=== PATIENT | male | born 1965 | race Caucasian/White ===

== ENCOUNTER 2020-06-07 11:55 | Emergency (ER) | payer BC ==
[2020-06-07] MEDS ORDERED: Ondansetron 4 MG/2 ML SDV IVPUSH ONE (12:14)
[2020-06-07] MEDS ORDERED: Morphine 2 MG/ML SYRINGE IVPUSH ONE ×2 (12:14→12:44)
[2020-06-07] MEDS ORDERED: Sodium Chloride 0.9% 1,000 ML IV SCH (12:15)
[2020-06-07] MEDS ORDERED: Sodium Chloride 0.9% 50 ML SDV FLUSH ONE (13:25)
--- NOTE | 2020-06-07 13:26 | EDM.PDOC ---
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 states he has these 3-4 times a week and is out of several minutes, with confusion following with consciousness for several more minutes. He complains of sudden onset mid-abd pain that is sharp, constant, and radiates to his left chest and back. Normal bowel movement this morning and he denies any bloody or dark stools. Associated nausea and states he became diaphoretic prior to his syncopal episode. [facility] - Related Data Allergies Allergy/AdvReac Type Severity Reaction Status Date / Time No Known Allergies Allergy Verified 06/07/20 12:45 Home Meds: Home Meds ClonazePAM [KlonoPIN] 0.5 mg PO BEDTIME PRN 06/07/20 [History] Dicyclomine HCl [Bentyl] 10 mg PO QID 06/07/20 [History] FLUoxetine [PROzac] 10 mg PO DAILY 06/07/20 [History] Pantoprazole Sodium [Protonix] 40 mg PO DAILY 06/07/20 [History] Psyllium Husk [Metamucil] 425 gm PO DAILY 06/07/20 [History] Simvastatin 20 mg PO BEDTIME 06/07/20 [History] Sucralfate [Carafate] 1 gm PO QID 06/07/20 [History] ED ROS GENERAL - Review of Systems Review Of Systems: See Below Constitutional: Reports: Malaise, Diaphoresis HEENT: Reports: No Symptoms Respiratory: Reports: No Symptoms Cardiovascular: Reports: Chest Pain, Syncope GI/Abdominal: Reports: Abdominal Pain, Nausea : Reports: No Symptoms Musculoskeletal: Reports: No Symptoms Skin: Reports: No Symptoms Neurological: Reports: Syncope Psychiatric: Reports: No Symptoms ED EXAM, GI/ABD - Physical Exam Exam: See Below Exam Limited By: No Limitations General Appearance: Alert, No Apparent Distress Head: Atraumatic, Normocephalic Neck: Normal Inspection, Supple Respiratory/Chest: No Respiratory Distress, Lungs Clear, Normal Breath Sounds, No Accessory Muscle Use, Chest Non-Tender Cardiovascular: Normal Peripheral Pulses, Regular Rate, Rhythm, No Edema, No Murmur GI/Abdominal Exam: Normal Bowel Sounds, Soft, No Distention, No Abnormal Bruit, Other (tenderness to mid abd with deep palpation) Extremities: Normal Inspection, Normal Range of Motion Neurological: Alert, Oriented, CN II-XII Intact, Normal Cognition, No Motor/Sensory Deficits Skin Exam: Warm, Dry, Intact, Normal Color, No Rash #1 Interpretation EKG Date: 06/07/20 Time: 12:21 Rhythm: NSR Rate (Beats/Min): 77 [place]: LAD-Left [place] Deviation P-Wave: Present QRS: Normal ST-T: Normal QT: Normal Comparison: NA - No Prior EKG Course - Vital Signs Text/Narrative:: Labs, EKG, CXR, and CT Head unremarkable. Patient given Morphine 2 mg IV x 2, zofran, and dilaudid 0.5 mg IV for pain and nausea. CT CHEST/ABD/PEL with moderately distended stomach. No obstruction. Patient already taking protonix and Gas-X at home. Will start reglan 10 mg PO q8 hours and Keppra 500 mg PO BID. Unsure if patient is having seizures, more likely it is vaso-vagal, but will try Keppra and see if it helps with syncopal episodes. Take for 2 weeks and follow up with Dr. Garcia. Discussed with nurse of Dr. Posada (surgery) and will fax note and results. GI referral requested at [facility] and images of CT given to . Last Recorded V/S: Last Vital Signs Temp 36.7 C 06/07/20 13:01 Pulse 69 06/07/20 13:01 Resp 20 06/07/20 13:01 BP 144/91 H 06/07/20 13:01 Pulse Ox 96 06/07/20 13:01 - Orders/Labs/Meds Orders: Active Orders 24 hr Category Date Time Status EKG Documentation Completion [RC] ASDIRECTED Care 06/07/20 12:13 Active PROLACTIN Stat Lab 06/07/20 12:20 Received UA RFX PHILLIP AND CULT IF INDIC [URIN] Stat Lab 06/07/20 12:13 Ordered Iopamidol [Isovue-300 (61%)] Med 06/07/20 13:30 Active 100 ml IV ASDIRECTED Sodium Chloride 0.9% [Normal Saline] 1,000 ml Med 06/07/20 12:15 Active IV ASDIRECTED EKG 12 Lead [EK] Stat Ther 06/07/20 12:13 Ordered Medication Orders Sodium Chloride (Normal Saline) 1,000 mls @ 1,000 mls/hr IV ASDIRECTED DEXTER Last Admin: 06/07/20 12:30 Dose: 1,000 mls/hr Documented by: WALKREN Iopamidol (Isovue-300 (61%)) 100 ml IV ASDIRECTED DEXTER Labs: Laboratory Tests 06/07/20 06/07/20 06/07/20 Range/Units 12:20 12:20 12:20 WBC 5.8 (4.0-11.0) K/uL RBC 5.48 (4.50-6.50) M/uL Hgb 16.9 (13.0-18.0) g/dL Hct 47.8 (40.0-54.0) % MCV 87 (76-96) fL MCH 30.8 (27.0-32.0) pg MCHC 35.4 H (31.0-35.0) g/dL RDW 14.0 (11.0-16.0) % Plt Count 182 (150-400) K/uL MPV 9.5 (6.0-10.0) fL Neut % (Auto) 58.6 (45.0-70.0) % Lymph % (Auto) 27.9 (20.0-40.0) % [place] % (Auto) 10.2 H (3.0-10.0) % Eos % (Auto) 2.8 (1.0-5.0) % Baso % (Auto) 0.5 (0.0-0.5) % Neut # (Auto) 3.40 (2.00-7.50) K/uL Lymph # (Auto) 1.62 (1.50-4.00) K/uL [place] # (Auto) 0.59 (0.20-0.80) K/uL Eos # (Auto) 0.16 (0.04-0.40) K/uL Baso # (Auto) 0.03 (0.02-0.10) K/uL Sodium 143 (136-145) mmol/L Potassium 3.5 (3.5-5.1) mmol/L Chloride 106 (98-107) mmol/L Carbon Dioxide 25.5 (21.0-32.0) mmol/L Anion Gap 15.0 (5.0-15.0) mmol/L BUN 10 (8-26) mg/dL Creatinine 1.08 (0.70-1.30) mg/dL Est Cr Clr Drug Dosing TNP Estimated GFR (MDRD) > 60 (>60) MLS/MIN BUN/Creatinine Ratio 9.3 (6-25) Glucose 147 H (74-100) mg/dL Lactic Acid 2.5 H (0.4-2.0) mmol/L Calcium 8.7 (8.5-10.1) mg/dL Total Bilirubin 0.5 (0.0-1.0) mg/dL AST 23 (15-37) U/L ALT 64 (12-78) U/L Alkaline Phosphatase 74 (46-116) U/L Troponin I < 0.017 (0.000-0.060) ng/mL Total Protein 7.3 (6.4-8.2) g/dL Albumin 3.9 (3.4-5.0) g/dL Globulin 3.4 (2.2-4.2) g/dL Albumin/Globulin Ratio 1.1 (0.8-2.0) SARS CoV-2 RNA Rapid BECK 06/07/20 Range/Units 13:49 WBC (4.0-11.0) K/uL RBC (4.50-6.50) M/uL Hgb (13.0-18.0) g/dL Hct (40.0-54.0) % MCV (76-96) fL MCH (27.0-32.0) pg MCHC (31.0-35.0) g/dL RDW (11.0-16.0) % Plt Count (150-400) K/uL MPV (6.0-10.0) fL Neut % (Auto) (45.0-70.0) % Lymph % (Auto) (20.0-40.0) % [place] % (Auto) (3.0-10.0) % Eos % (Auto) (1.0-5.0) % Baso % (Auto) (0.0-0.5) % Neut # (Auto) (2.00-7.50) K/uL Lymph # (Auto) (1.50-4.00) K/uL [place] # (Auto) (0.20-0.80) K/uL Eos # (Auto) (0.04-0.40) K/uL Baso # (Auto) (0.02-0.10) K/uL Sodium (136-145) mmol/L Potassium (3.5-5.1) mmol/L Chloride (98-107) mmol/L Carbon Dioxide (21.0-32.0) mmol/L Anion Gap (5.0-15.0) mmol/L BUN (8-26) mg/dL Creatinine (0.70-1.30) mg/dL Est Cr Clr Drug Dosing Estimated GFR (MDRD) (>60) MLS/MIN BUN/Creatinine Ratio (6-25) Glucose (74-100) mg/dL Lactic Acid (0.4-2.0) mmol/L Calcium (8.5-10.1) mg/dL Total Bilirubin (0.0-1.0) mg/dL AST (15-37) U/L ALT (12-78) U/L Alkaline Phosphatase (46-116) U/L Troponin I (0.000-0.060) ng/mL Total Protein (6.4-8.2) g/dL Albumin (3.4-5.0) g/dL Globulin (2.2-4.2) g/dL Albumin/Globulin Ratio (0.8-2.0) SARS CoV-2 RNA Rapid BECK Negative Meds: Medications Generic Name Dose Route Start Last Admin Trade Name Freq PRN Reason Stop Dose Admin Sodium Chloride 1,000 mls @ 1,000 mls/hr 06/07/20 12:15 06/07/20 12:30 Normal Saline IV 1,000 mls/hr ASDIRECTED DEXTER Administration Iopamidol 100 ml 06/07/20 13:30 Isovue-300 (61%) IV ASDIRECTED DEXTER Discontinued Medications Generic Name Dose Route Start Last Admin Trade Name Oneilq PRN Reason Stop Dose Admin Hydromorphone HCl 0.5 mg 06/07/20 14:20 06/07/20 14:00 Dilaudid IVPUSH 06/07/20 14:21 0.5 mg ONETIME ONE Administration Hydromorphone HCl Confirm 06/07/20 14:20 Dilaudid Administered 06/07/20 14:21 Dose 2 mg .ROUTE .STK-MED ONE Levetiracetam 1,000 mg/ Sodium 110 mls @ 400 mls/hr 06/07/20 15:02 Chloride IV 06/07/20 15:16 ONETIME ONE Morphine Sulfate 2 mg 06/07/20 12:14 06/07/20 12:15 Morphine IVPUSH 06/07/20 12:15 2 mg ONETIME ONE Administration Morphine Sulfate 2 mg 06/07/20 12:44 06/07/20 13:00 Morphine IVPUSH 06/07/20 12:45 2 mg ONETIME ONE Administration Ondansetron HCl 4 mg 06/07/20 12:14 Zofran IVPUSH 06/07/20 12:15 ONETIME ONE Pantoprazole Sodium 40 mg 06/07/20 15:04 Protonix Granules PO 06/07/20 15:05 BEDTIME ONE Simethicone 80 mg 06/07/20 15:02 Simethicone PO 06/07/20 15:03 ONETIME ONE Sodium Chloride 50 ml 06/07/20 13:25 Normal Saline FLUSH 06/07/20 13:26 ONETIME ONE Departure - Departure Time of Disposition: 16:00 Disposition: Home, Self-Care 01 Condition: Good Clinical Impression: Gastroenteritis - Discharge Information *PRESCRIPTION DRUG MONITORING PROGRAM REVIEWED*: Not Applicable *COPY OF PRESCRIPTION DRUG MONITORING REPORT IN PATIENT ANTWON: Not Applicable Referrals: PCP,None [Primary Care Provider] - 1 Week (Please refer patient to GI at [facility]. ) Forms: ED Department Discharge Additional Instructions: Take KEPPRA 500 mg PO BID. Take reglan 10 mg PO q8h as needed for abdominal pain/nausea/vomiting. Eat smaller meals every 3 hours. Sips of fluid. Avoid heavy meals and dairy. GI referral placed for [facility]. Sepsis Event Note (ED) - Evaluation Sepsis Screening Result: No Definite Risk - Focused Exam Vital Signs: Vital Signs Temp Pulse Resp BP Pulse Ox 06/07/20 13:01 36.7 C 69 20 144/91 H 96 06/07/20 12:50 76 20 140/96 H 06/07/20 12:30 82 20 144/96 H 98 06/07/20 12:15 80 20 143/109 H 96 06/07/20 12:00 36.5 C 78 20 158/102 H 97 - My Orders Last 24 Hours: My Active Orders 06/07/20 12:13 EKG Documentation Completion [RC] ASDIRECTED UA RFX PHILLIP AND CULT IF INDIC [URIN] Stat EKG 12 Lead [EK] Stat 06/07/20 12:15 Sodium Chloride 0.9% [Normal Saline] 1,000 ml IV ASDIRECTED 06/07/20 12:20 PROLACTIN Stat 06/07/20 13:30 Iopamidol [Isovue-300 (61%)] 100 ml IV ASDIRECTED - Assessment/Plan Last 24 Hours: My Active Orders 06/07/20 12:13 EKG Documentation Completion [RC] ASDIRECTED UA RFX PHILLIP AND CULT IF INDIC [URIN] Stat EKG 12 Lead [EK] Stat 06/07/20 12:15 Sodium Chloride 0.9% [Normal Saline] 1,000 ml IV ASDIRECTED 06/07/20 12:20 PROLACTIN Stat 06/07/20 13:30 Iopamidol [Isovue-300 (61%)] 100 ml IV ASDIRECTED
[2020-06-07] MEDS ORDERED: Iopamidol 612 MG/ML 100 ML Bottle IV SCH (13:30)
--- NOTE | 2020-06-07 13:30 | CR ---
DATE OF SERVICE: 06/07/20 CLINICAL DATA: chest pain AP CHEST: The patient has taken a very poor inspiration and is in an apical lordotic position. No priors. The heart size is normal. The lungs appear clear. No pneumothorax. No pleural effusions. No evidence of acute intrathoracic disease. [id number] [facility]
--- NOTE | 2020-06-07 14:08 | CT ---
DATE OF SERVICE: 06/07/2020 CLINICAL DATA: Syncope Unenhanced brain CT: Multi slice acquisition through the brain without IV contrast was performed. No priors. No masses or mass effect. No intracranial hemorrhage. No evidence of acute or subacute infarct. No osseous abnormalities. Impression: No acute intracranial abnormalities. MTDD
[2020-06-07] MEDS ORDERED: HYDROmorphone 2 MG/ML SDV ONE (14:20)
[2020-06-07] MEDS ORDERED: HYDROmorphone 2 MG/ML SDV IVPUSH ONE (14:20)
[2020-06-07] MEDS ORDERED: Simethicone 80 MG Tab.Chew PO ONE (15:02)
[2020-06-07] MEDS ORDERED: levETIRAcetam 1,000 MG in Sodium Chloride 0.9% 100 ML IV ONE (15:02)
[2020-06-07] MEDS ORDERED: Pantoprazole 40 MG Delayed-Release Granules 1 Packet PO ONE (15:04)
--- NOTE | 2020-06-07 15:20 | CT ---
DATE OF SERVICE: 06/07/2020 CLINICAL DATA: Chest and abdominal pain Enhanced chest CT: Multi slice acquisition through the chest with IV contrast was performed. No priors. There is suboptimal contrast opacifications of the pulmonary arteries to exclude small PE. No pneumothorax. No pleural effusions. No aortic aneurysm or dissection. There are minimal atelectatic changes in the dependent portion of both lungs. The lungs are otherwise clear. No areas of consolidation. The heart size is normal. No significant pericardial effusion. There is a moderate sized hiatal hernia. There is mild degenerative disc disease at multiple levels in the thoracic spine. The enhanced abdomen and pelvic CT: Multi slice axial acquisition with IV, but without oral contrast was performed. No priors. There is a moderate sized hiatal hernia. The stomach is fluid and gas filled and moderately distended. There are small radiodensities in the dependent stomach which are most likely ingested pill fragments. The liver is normal size with homogeneous attenuation. No focal hepatic lesions. The gallbladder appears normal. No calcified gallstones. No pericholecystic fluid. No biliary duct dilatation. The spleen appears normal. There is an 18 mm nodule medial to the spleen that is isodense to the spleen consistent with mariano accessory spleen. The right and left kidneys appear normal and enhanced symmetrically. No hydronephrosis or hydroureter. Bladder is partially fluid filled. It appears normal. Prostate is mildly enlarged. There is a calcification within the prostate consistent with chronic prostatitis. The appendix is not dilated. No evidence of appendicitis. There is a moderate amount of gas and stool present throughout the colon. There is mild mural thickening within the distal sigmoid colon at the rectosigmoid junction. This is probably related to nondistention. Direct visualization is recommended to exclude an infiltrating process. No free air. No free fluid. No dilated loops of bowel. No adenopathy. No aortic aneurysm or dissection. There is a small fat containing umbilical hernia. There is a fat containing left inguinal hernia. There is degenerative disc disease at multiple levels in the lower thoracic and lumbar spine. MTDD
== END 2020-06-07 16:15 | disposition home or self-care (01) ==
LOC: LB.ED 11:55
DX: K52.9 Noninfective gastroenteritis and colitis, unspecified (principal); E78.5 Hyperlipidemia, unspecified; K21.9 Gastro-esophageal reflux disease without esophagitis; Z20.828 Contact with and (suspected) exposure to other viral communicable diseases; Z79.899 Other long term (current) drug therapy
CPT/HCPCS: 36415; 70450; 71045; 71260; 74177; 80053; 83605; 84146; 84484; 85025; 93005; 96374; 96375; 99284; 99284-25; J1170; J1953; J2270; J7030; U0002

== ENCOUNTER 2021-05-09 15:24 | Emergency (ER) | payer BC ==
[2021-05-09] MEDS ORDERED: cloNIDine 0.1 MG Tab PO ONE ×2 (15:33→17:20)
--- NOTE | 2021-05-09 16:03 | CT ---
DATE OF SERVICE: 05/09/2021 CLINICAL DATA: TRAUMA Unenhanced brain CT: Multi slice axial acquisition was performed. Comparison is made to a prior exam dated 07 June 2020. No masses or mass effect. No intracranial hemorrhage. No evidence of acute or subacute infarct. No osseous abnormalities. No changes from the prior study. Impression: No acute intracranial abnormalities. MTDD
[2021-05-09] MEDS ORDERED: Acetaminophen 325 MG Tab PO ONE (16:27)
--- NOTE | 2021-05-09 17:22 | EDM.PDOC ---
ED HPI GENERAL MEDICAL PROBLEM - General Chief Complaint: Cardiovascular Problem Stated Complaint: BP IS HIGH Time Seen by Provider: 05/09/21 15:30 Source of Information: Reports: Patient, RN Notes Reviewed History Limitations: Reports: No Limitations - History of Present Illness INITIAL COMMENTS - FREE TEXT/NARRATIVE: This patient presents to the emergency department from the clinic for evaluation of hypertension. He states he started feeling ill yesterday and was noted to have quite a headache today. He had been monitoring his blood pressure at home which was elevated. He denies chest pain, vomiting, diarrhea. He does have a headache. Work-up in the left clinic today included labs which were normal and an EKG which was without acute findings. - Related Data Allergies Allergy/AdvReac Type Severity Reaction Status Date / Time No Known Allergies Allergy Verified 06/07/20 12:45 Home Meds: Home Meds ClonazePAM [KlonoPIN] 0.5 mg PO BEDTIME PRN 06/07/20 [History] Dicyclomine HCl [Bentyl] 10 mg PO QID 06/07/20 [History] FLUoxetine [PROzac] 10 mg PO DAILY 06/07/20 [History] Pantoprazole Sodium [Protonix] 40 mg PO DAILY 06/07/20 [History] Psyllium Husk [Metamucil] 425 gm PO DAILY 06/07/20 [History] Metoprolol Tartrate [Lopressor] 50 mg PO BID 30 Days #60 tablet 05/10/21 [Rx] Past Medical History HEENT History: Reports: None Cardiovascular History: Reports: Syncope Respiratory History: Reports: Other (See Below) Other Respiratory History: Chest tube post hernia repair surgery with decreased lung expansion Gastrointestinal History: Reports: Diverticulosis, GI Bleed, Hemorrhoids, Hiatal Hernia Musculoskeletal History: Reports: Neck Pain, Chronic Neurological History: Reports: Vertigo, Other (See Below) Other Neuro History: Some short term memory dysfuntion 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 angiogram x 2 at [facility] GI Surgical History: Reports: Hernia Repair/Other, Agustín Fundoplication Neurological Surgical History: Reports: None Musculoskeletal Surgical History: Reports: Carpal Tunnel Other Musculoskeletal Surgeries/Procedures:: Bilateral hand numbess and loss of dexterity post surgery Dermatological Surgical History: Reports: None Social & Family History - Tobacco Use Tobacco Use Status *Q: Never Tobacco User - Caffeine Use Caffeine Use: Reports: Coffee - Recreational Drug Use Recreational Drug Use: No ED ROS GENERAL - Review of Systems Review Of Systems: See Below Constitutional: Reports: Other (Unable to eat but has an appetite). Denies: Fever HEENT: Reports: Other (Mouth sores) Respiratory: Reports: No Symptoms Cardiovascular: Reports: No Symptoms Endocrine: Reports: No Symptoms GI/Abdominal: Reports: No Symptoms Musculoskeletal: Reports: No Symptoms Skin: Reports: No Symptoms Neurological: Reports: Headache ED EXAM, GENERAL - Physical Exam Exam: See Below Exam Limited By: No Limitations General Appearance: Alert, No Apparent Distress, Anxious, Other (Mucous membranes moist) Eye Exam: Bilateral Eye: PERRL Ears: Normal External Exam Nose: Normal Inspection Throat/Mouth: No Airway Compromise, Other Head: Atraumatic, Normocephalic Neck: Normal Inspection, Full Range of Motion Respiratory/Chest: No Respiratory Distress, Lungs Clear, Normal Breath Sounds, No Accessory Muscle Use Cardiovascular: Normal Peripheral Pulses, Tachycardia Extremities: Normal Range of Motion, Normal Capillary Refill Neurological: Alert, Oriented, Normal Cognition, Normal Gait, No Motor/Sensory Deficits Psychiatric: Normal Affect Skin Exam: Warm, Dry, Intact, Normal Color, No Rash Course - Vital Signs Last Recorded V/S: Last Vital Signs Temp 36.0 C L 05/09/21 16:00 Pulse 60 05/09/21 16:41 Resp 16 05/09/21 16:41 BP 142/92 H 05/09/21 17:55 Pulse Ox 96 05/09/21 16:41 - Orders/Labs/Meds Meds: Medications Discontinued Medications Generic Name Dose Route Start Last Admin Trade Name Kendal PRN Reason Stop Dose Admin Acetaminophen 650 mg 05/09/21 16:27 05/09/21 16:25 Acetaminophen 325 Mg Tab PO 05/09/21 16:28 650 mg NOW ONE Administration Clonidine HCl 0.1 mg 05/09/21 15:33 05/09/21 16:27 Clonidine 0.1 Mg Tab PO 05/09/21 15:34 0.1 mg ONETIME ONE Administration Clonidine HCl 0.1 mg 05/09/21 17:20 05/09/21 17:55 Clonidine 0.1 Mg Tab PO 05/09/21 17:21 0.1 mg ONETIME ONE Administration - Re-Assessments/Exams Free Text/Narrative Re-Assessment/Exam: To the emergency room for the clinic for evaluation [place] of elevated blood pressure. He has not had a history of hypertension in the past. He had a work- up in the clinic that included labs which were normal and an EKG that did not identify any concerning findings or changes. His blood pressure is high on arrival and he was given 0.1 mg of Catapres which did bring it down some. He was given an additional tablet of that to take later this evening. There are no signs of endorgan dysfunction. He does have a headache which did resolve slowly while he was in the ED. He will be managed with supportive outpatient care and close follow-up with his primary care provider. Patient will be started on metoprolol 50 mg twice a day at home. They will continue to do serial blood pressures at home and he will follow-up with his primary care provider in 1 week. He should return to the ER for any symptoms of dizziness, lightheadedness, syncope, other concerns or complaints. Departure - Departure Time of Disposition: 17:45 Disposition: Home, Self-Care 01 Condition: Good Clinical Impression: Hypertensive urgency Prescriptions: Metoprolol Tartrate [Lopressor] 50 mg PO BID 30 Days #60 tablet Instructions: Managing Your Hypertension Referrals: PCP,None [Primary Care Provider] - Forms: ED Department Discharge
== END 2021-05-09 18:04 | disposition home or self-care (01) ==
LOC: LB.ED 15:24
DX: I16.0 Hypertensive urgency (principal); I10 Essential (primary) hypertension
CPT/HCPCS: 70450; 99283; A9270

== ENCOUNTER 2021-09-19 22:28 | Emergency (ER) | payer BC ==
[2021-09-19] MEDS: Sodium Chloride 0.9% 1,000 ML IV ONE ×2 (23:21→23:42)
[2021-09-19] MEDS: ceFAZolin 1 GM in Sodium Chloride 0.9% 50 ML IV ONE (23:43)
[2021-09-20] MEDS: Lidocaine 2% Jelly 5 ML Urojet MUCMEM ONE
[2021-09-20] MEDS ORDERED: Sodium Chloride 0.9% 1,000 ML IV SCH (02:15)
[2021-09-20] MEDS: Lidocaine 2% Jelly 5 ML Urojet ONE (07:09)
[2021-09-20] MEDS: Sodium Chloride 0.9% 1,000 ML IV SCH (07:46)
[2021-09-20] MEDS: ceFAZolin 1 GM in Sodium Chloride 0.9% 50 ML IV ONE (08:59)
[2021-09-20] MEDS: ceFAZolin 1 GM Vial ONE (08:59)
== END 2021-09-20 10:00 ==
LOC: LB.ED 22:28
DX: R53.1 Weakness (principal); R41.0 Disorientation, unspecified; Z20.822 Contact with and (suspected) exposure to COVID-19
CPT/HCPCS: 36415; 36600; 70450; 71250; 74176; 80053; 80307; 81001; 82140; 82803; 82947; 83605; 84484; 85025; 85610; 87040; 93005; 96365; 96366; 99285-25; A0425; A0429; J0690; J7030; U0002